=== PATIENT | male | born 1955 | race American Indian/Alaskan Native ===

== ENCOUNTER 2022-05-10 11:05 | Day surgery (SDC) | payer MEDICARE, OTHER ==
[2022-05-10] VITALS (9 sets, daily range): BP systolic 122–146; BP diastolic 65–84
[~2022-05-10] VITALS: Ht 175.3 cm; Wt 99.7 kg
[2022-05-10] MEDS ORDERED: midazolam 1 mg/ML 2ml injection ONE (11:36)
[2022-05-10] MEDS ORDERED: LIDOcaine 1% (10mg/ml) 2ml vial ONE (11:36)
[2022-05-10] MEDS ORDERED: nitroGLYCERIN-Tridil 50MG/D5W 250 ML IV ONE (11:36)
[2022-05-10] MEDS ORDERED: fentaNYL/PF 50MCG/1 ML 2ML syringe ONE (11:36)
[2022-05-10] MEDS ORDERED: verapamil 2.5 mg/ml inj IV ONE (11:36)
[2022-05-10] MEDS ORDERED: iohexol 350MG/ML 100ml bottle IV ONE ×2 (11:37→13:36)
[2022-05-10] MEDS ORDERED: heparin 1,000unit/ml 10ml vial 10 ML ONE (11:37)
[2022-05-10] MEDS ORDERED: FLO0.4C PO (11:46)
[2022-05-10] MEDS ORDERED: LABE100T8 PO ×2 (11:46)
[2022-05-10] MEDS ORDERED: CHLO25TA10 PO (11:46)
[2022-05-10] MEDS ORDERED: ATOR20TA66 PO (11:46)
[2022-05-10] MEDS ORDERED: LISI40TA13 PO (11:46)
[2022-05-10] MEDS ORDERED: FLUT1BLS13 PO (11:46)
[2022-05-10] MEDS ORDERED: LORazepam 0.5 MG tablet PO PRN (11:50)
[2022-05-10] MEDS ORDERED: normal saline 1,000 ML IV SCH (11:50)
[2022-05-10] MEDS ORDERED: diphenhydrAMINE 25mg capsule PO PRN (11:50)
[2022-05-10] MEDS ORDERED: clopidogrel 300mg tablet ONE (13:44)
[2022-05-10] MEDS ORDERED: aspirin 325mg tablet ONE (13:44)
[2022-05-10] MEDS ORDERED: iohexol 350 MG/ML 50ML vial IV ONE (14:01)
[2022-05-10] MEDS ORDERED: HYDROcodone/acetaminophen 10/325mg tab PO PRN (14:50)
[2022-05-10] MEDS ORDERED: HYDROcodone/acetaminophen 5mg/325mg tablet PO PRN (14:50)
== END 2022-05-10 17:45 | disposition home or self-care (01) ==
LOC: SSTAY O 11:05
PROVIDERS: ATTEND Student in an Organized Health Care Education/Training Program
DX: R94.39 Abnormal result of other cardiovascular function study (principal); I25.10 Atherosclerotic heart disease of native coronary artery without angina pectoris; I10 Essential (primary) hypertension; E78.5 Hyperlipidemia, unspecified; G47.33 Obstructive sleep apnea (adult) (pediatric); Z79.82 Long term (current) use of aspirin; Z79.899 Other long term (current) drug therapy; Z98.890 Other specified postprocedural states
CPT/HCPCS: 93005; 93458; C1725; C1769; C1874; C1894; C9600; J1644; J2250; J3010; J3490; J7030; Q0163; Q9967; 99152; 99153; A4620; A5120; A6258; A6402

== ENCOUNTER 2023-07-27 16:07 | Inpatient (IN) | payer MEDICARE, OTHER ==
[~2023-07-27] VITALS: Ht 175.3 cm; Wt 99.1 kg
[~2023-07-27 16:07] MED LIST: ATOR20TA66 PO; CHLO25TA10 PO; FLO0.4C PO; FLUT1BLS13 PO; LABE100T8 PO; LISI40TA13 PO
[2023-07-27] MEDS ORDERED: nitroGLYCERIN 1gm ointment UD TP ONE (16:25)
[2023-07-27] MEDS ORDERED: magnesium hydroxide 30ml (MOM) UD suspension PO PRN (17:10)
[2023-07-27] MEDS ORDERED: mag hydrox/Alum hydrox/simeth 30ml oral suspension PO PRN (17:10)
[2023-07-27] MEDS ORDERED: acetaminophen 325mg tablet PO PRN (17:10)
[2023-07-27] MEDS ORDERED: heparin 25,000 UNIT/250ml bag 250 ML IV PRN (17:10)
[2023-07-27] MEDS ORDERED: potassium Cl 40MEQ/1/2NS 520ml 520 ML IV PRN (17:10)
[2023-07-27] MEDS ORDERED: morphine 2 MG/ML inj. syringe IV PRN ×2 (17:10)
[2023-07-27] MEDS ORDERED: HYDROcodone/acetaminophen 5mg/325mg tablet PO PRN (17:10)
[2023-07-27] MEDS ORDERED: ondansetron/PF 4mg/2ml inj IV PRN (17:10)
[2023-07-27] MEDS ORDERED: docusate sod 100mg capsule PO PRN (17:10)
[2023-07-27] MEDS ORDERED: magnesium Cl slow-release 64mg tablet PO PRN (17:10)
[2023-07-27] MEDS ORDERED: potassium Cl 20 mEq SR tablet PO PRN ×2 (17:10)
[2023-07-27] MEDS ORDERED: PERFLUTREN PROTEIN-A MICROSPHR (Optison) 0.22 MG/ML 3ML VIAL IV ONE (17:10)
[2023-07-27] MEDS ORDERED: magnesium 4gm in 100ml NS 100 ML IV PRN (17:10)
[2023-07-27 17:25] LABS: BASOPHILS % (AUTO) 0.2 % (0-1); EOSINOPHILS % (AUTO) 0 % (0-6); HEMATOCRIT 42.8 % (42.0-52.0); HEMOGLOBIN 14.7 g/dl (14.0-17.9); LYMPHOCYTES # (AUTO) 1.2 X10'3 (1.1-4.8); LYMPHOCYTES % (AUTO) 9.4 % (21-51); MEAN CORPUSCULAR HEMOGLOBIN 30.6 PG (27.0-31.0); MEAN CORPUSCULAR HGB CONC 34.5 g/dL (33.0-36.5); MEAN CORPUSCULAR VOLUME 88.8 FL (78-98); MEAN PLATELET VOLUME 9.4 FL (7.4-10.4); MONOCYTES # (AUTO) 0.5 X10'3 (0-0.9); MONOCYTES % (AUTO) 3.8 % (2-12); NEUTROPHILS % (AUTO) 86.6 % (42-75); PLATELET COUNT 254 X10'3 (140-440); RED BLOOD COUNT 4.82 X10'6 (4.70-6.10); RED CELL DISTRIBUTION WIDTH 13.3 % (11.5-14.5); WHITE BLOOD COUNT 12.7 X10'3 (4.5-11.0)
[2023-07-27 17:39] LABS: APTT 39 SECONDS (22-32); PROTHROMBIN TIME 10.7 SECONDS (9.0-12.0)
[2023-07-27 17:41] LABS: ALANINE AMINOTRANSFERASE 33 U/L (12-78); ALBUMIN 3.2 G/DL (3.4-5.0); ALBUMIN/GLOBULIN RATIO 0.8 (1.1-1.5); ALKALINE PHOSPHATASE 83 IU/L (46-116); ANION GAP 8 (8-16); ASPARTATE AMINO TRANSFERASE 29 U/L (10-37); BILIRUBIN,TOTAL 0.4 MG/DL (0.1-1.0); BLOOD UREA NITROGEN 33 MG/DL (7-18); BUN/CREATININE RATIO 25.4 (10.0-20.0); CALCIUM 8.8 MG/DL (8.5-10.1); CHLORIDE 101 MMOL/L (99-107); GLUCOSE 138 MG/DL (70-104); POTASSIUM 4.1 MMOL/L (3.5-5.1); SODIUM 138 MMOL/L (135-145); TOTAL CARBON DIOXIDE 29.3 MMOL/L (24-32); TOTAL PROTEIN 7.3 G/DL (6.4-8.2); eCRCL 51 ML/MIN; eGFR 55 ML/MIN
[2023-07-27] MEDS ORDERED: albuterol 2.5 MG/3 ML nebule NEB PRN (17:45)
[2023-07-27 17:53] LABS: MAGNESIUM 2.3 MG/DL (1.5-2.4); PRO BRAIN NATRIURETIC PEPTIDE 171 PG/ML (0-125)
[2023-07-27] MEDS: heparin 25,000 UNIT/250ml bag 250 ML IV PRN (18:02)
[2023-07-27 18:10] LABS: HEMOGLOBIN A1C 5.6 % (4.5-6.2)
[2023-07-27] MEDS: normal saline 1000ml 1,000 ML IV SCH (20:29)
[2023-07-27] MEDS: albuterol 2.5 MG/3 ML nebule NEB SCH (20:30)
[2023-07-27] MEDS: budesonide 0.5mg/2ml UD nebule IH SCH (20:30)
[2023-07-27 20:33] VITALS: PULSE 85; RESP 18; O2SAT 94
[2023-07-27 20:41] VITALS: PULSE 75; RESP 16
[2023-07-27 23:47] VITALS: BP 120/68; PULSE 67; RESP 17; TEMP 98.2; O2SAT 96
[2023-07-27 23:53] VITALS: RESP 18; O2SAT 95
[2023-07-28] VITALS (16 sets, daily range): BP systolic 107–164; BP diastolic 61–90; PULSE 67–90; RESP 14–19; TEMP 97.2–97.9; O2SAT 94–97
[2023-07-28] MEDS ORDERED: ASPI-920 PO (00:30)
[2023-07-28] MEDS ORDERED: NITR0.4T51 SL (00:37)
[2023-07-28] MEDS: heparin 10,000 units/1 ML INJ IV PRN ×2 (01:48→17:24)
[2023-07-28] MEDS: albuterol 2.5 MG/3 ML nebule NEB SCH ×3 (02:57→21:40)
[2023-07-28] MEDS: tamsulosin 0.4mg capsule PO SCH ×2 (08:00→13:06)
[2023-07-28] MEDS ORDERED: aspirin 81mg, enteric-coated 1 TAB TABLET.DR PO SCH (08:00)
[2023-07-28] MEDS: atorvastatin 20mg tablet PO SCH ×2 (08:05→13:06)
[2023-07-28] MEDS: budesonide 0.5mg/2ml UD nebule IH SCH ×2 (08:40→21:40)
[2023-07-28] MEDS ORDERED: albuterol 2.5 MG/3 ML nebule NEB SCH (09:27)
[2023-07-28 09:42] LABS: BASOPHILS % (AUTO) 0.2 % (0-1); EOSINOPHILS % (AUTO) 0.1 % (0-6); HEMATOCRIT 41.7 % (42.0-52.0); LYMPHOCYTES # (AUTO) 2.1 X10'3 (1.1-4.8); LYMPHOCYTES % (AUTO) 17.5 % (21-51); MEAN CORPUSCULAR HEMOGLOBIN 30.1 PG (27.0-31.0); MEAN CORPUSCULAR HGB CONC 33.7 g/dL (33.0-36.5); MEAN CORPUSCULAR VOLUME 89.3 FL (78-98); MEAN PLATELET VOLUME 9.4 FL (7.4-10.4); MONOCYTES # (AUTO) 1.1 X10'3 (0-0.9); MONOCYTES % (AUTO) 9.1 % (2-12); NEUTROPHILS # (AUTO) 8.6 X10'3 (1.8-7.7); NEUTROPHILS % (AUTO) 73.1 % (42-75); PLATELET COUNT 244 X10'3 (140-440); RED BLOOD COUNT 4.67 X10'6 (4.70-6.10); WHITE BLOOD COUNT 11.8 X10'3 (4.5-11.0)
[2023-07-28 10:05] LABS: ALANINE AMINOTRANSFERASE 27 U/L (12-78); ALBUMIN 2.9 G/DL (3.4-5.0); ALBUMIN/GLOBULIN RATIO 0.8 (1.1-1.5); ALKALINE PHOSPHATASE 71 IU/L (46-116); ANION GAP 7 (8-16); ASPARTATE AMINO TRANSFERASE 24 U/L (10-37); BILIRUBIN,TOTAL 0.3 MG/DL (0.1-1.0); BLOOD UREA NITROGEN 33 MG/DL (7-18); BUN/CREATININE RATIO 26.6 (10.0-20.0); CALCIUM 8.7 MG/DL (8.5-10.1); CHLORIDE 105 MMOL/L (99-107); CHOL/HDL RATIO 2.8 (0.00-4.99); CHOLESTEROL 113 MG/DL (0-200); CREATININE 1.24 MG/DL (0.60-1.10); GLUCOSE 107 MG/DL (70-104); HDL CHOLESTEROL 41 MG/DL (35-60); LDL CHOLESTEROL 60 MG/DL (50-100); MAGNESIUM 2.3 MG/DL (1.5-2.4); POTASSIUM 3.5 MMOL/L (3.5-5.1); SODIUM 140 MMOL/L (135-145); TOTAL PROTEIN 6.6 G/DL (6.4-8.2); TRIGLYCERIDES 65 MG/DL (20-135); eCRCL 55 ML/MIN; eGFR 58 ML/MIN
[2023-07-28 10:09] LABS: CHOL/HDL RATIO 2.8 (0.00-4.99); CHOLESTEROL 110 MG/DL (0-200); HDL CHOLESTEROL 40 MG/DL (35-60); LDL CHOLESTEROL 57 MG/DL (50-100); TRIGLYCERIDES 65 MG/DL (20-135)
[2023-07-28] MEDS: heparin 25,000 UNIT/250ml bag 250 ML IV PRN ×3 (10:15→17:25)
[2023-07-28] MEDS ORDERED: ipratropium/albuterol 3ml nebule NEB PRN (11:35)
[2023-07-28] MEDS: aspirin 81mg tab.chew PO SCH (13:06)
[2023-07-28] MEDS: normal saline 1000ml 1,000 ML IV SCH (14:05)
[2023-07-28] MEDS ORDERED: LIDOcaine 1% (10mg/ml) 2ml vial ONE (16:14)
[2023-07-28] MEDS ORDERED: heparin 1,000unit/ml 10ml vial 10 ML ONE (16:14)
[2023-07-28] MEDS ORDERED: verapamil 2.5 mg/ml inj IV ONE (16:14)
[2023-07-28] MEDS ORDERED: nitroGLYCERIN 500mcg/5mL D5W 5 ML IV ONE (16:15)
[2023-07-28] MEDS ORDERED: iohexol 350MG/ML 100ml bottle IV ONE ×2 (16:15→18:23)
[2023-07-28] MEDS ORDERED: albuterol 1.25 MG/3 ML (1/2 strength) nebule NEB PRN (17:00)
[2023-07-28] MEDS ORDERED: clopidogrel 75mg tablet PO ONE (17:30)
[2023-07-28] MEDS ORDERED: midazolam 1 mg/ML 2ml injection ONE (17:55)
[2023-07-28] MEDS ORDERED: fentaNYL/PF 50MCG/1 ML 2ML syringe ONE (17:55)
[2023-07-28] MEDS ORDERED: ticagrelor 90mg tablet ONE (18:35)
[2023-07-28] MEDS ORDERED: nitroGLYCERIN 0.4mg SUBLingual tab SL ONE (18:44)
[2023-07-28] MEDS: metoprolol tartrate 12.5mg (1/2 tablet) PO SCH (19:57)
[2023-07-28] MEDS ORDERED: budesonide 0.5mg/2ml UD nebule IH SCH (21:00)
[2023-07-29] VITALS (8 sets, daily range): BP systolic 120–152; BP diastolic 60–88; PULSE 63–90; RESP 14–18; TEMP 97.6–97.7; O2SAT 95–96
[2023-07-29] MEDS: albuterol 2.5 MG/3 ML nebule NEB SCH ×2 (02:45→08:11)
[2023-07-29 06:28] LABS: ALANINE AMINOTRANSFERASE 22 U/L (12-78); ALBUMIN 2.8 G/DL (3.4-5.0); ALBUMIN/GLOBULIN RATIO 0.8 (1.1-1.5); ALKALINE PHOSPHATASE 75 IU/L (46-116); ANION GAP 7 (8-16); ASPARTATE AMINO TRANSFERASE 27 U/L (10-37); BILIRUBIN,TOTAL 0.4 MG/DL (0.1-1.0); BLOOD UREA NITROGEN 31 MG/DL (7-18); BUN/CREATININE RATIO 24.8 (10.0-20.0); CALCIUM 8.4 MG/DL (8.5-10.1); CHLORIDE 104 MMOL/L (99-107); CREATININE 1.25 MG/DL (0.60-1.10); GLUCOSE 98 MG/DL (70-104); MAGNESIUM 2.2 MG/DL (1.5-2.4); PHOSPHORUS 3.8 MG/DL (2.3-4.5); POTASSIUM 3.8 MMOL/L (3.5-5.1); SODIUM 140 MMOL/L (135-145); TOTAL CARBON DIOXIDE 29.5 MMOL/L (24-32); TOTAL PROTEIN 6.3 G/DL (6.4-8.2); eCRCL 55 ML/MIN; eGFR 57 ML/MIN
[2023-07-29 06:32] LABS: BASOPHILS % (AUTO) 0.4 % (0-1); EOSINOPHILS % (AUTO) 0.3 % (0-6); HEMATOCRIT 39.6 % (42.0-52.0); HEMOGLOBIN 13.8 g/dl (14.0-17.9); LYMPHOCYTES # (AUTO) 1.5 X10'3 (1.1-4.8); LYMPHOCYTES % (AUTO) 14.7 % (21-51); MEAN CORPUSCULAR HEMOGLOBIN 30.9 PG (27.0-31.0); MEAN CORPUSCULAR HGB CONC 34.9 g/dL (33.0-36.5); MEAN CORPUSCULAR VOLUME 88.6 FL (78-98); MEAN PLATELET VOLUME 9.3 FL (7.4-10.4); MONOCYTES # (AUTO) 0.9 X10'3 (0-0.9); MONOCYTES % (AUTO) 8.8 % (2-12); NEUTROPHILS # (AUTO) 7.8 X10'3 (1.8-7.7); NEUTROPHILS % (AUTO) 75.8 % (42-75); PLATELET COUNT 231 X10'3 (140-440); RED BLOOD COUNT 4.47 X10'6 (4.70-6.10); RED CELL DISTRIBUTION WIDTH 13.1 % (11.5-14.5); WHITE BLOOD COUNT 10.3 X10'3 (4.5-11.0)
[2023-07-29] MEDS ORDERED: clopidogrel 75mg tablet PO SCH (08:00)
[2023-07-29] MEDS: budesonide 0.5mg/2ml UD nebule IH SCH (08:11)
[2023-07-29] MEDS: aspirin 81mg tab.chew PO SCH (08:17)
[2023-07-29] MEDS: atorvastatin 20mg tablet PO SCH (08:18)
[2023-07-29] MEDS: tamsulosin 0.4mg capsule PO SCH (08:19)
[2023-07-29] MEDS: metoprolol tartrate 12.5mg (1/2 tablet) PO SCH (08:20)
[2023-07-29] MEDS ORDERED: LOP12.5T PO (11:21)
[2023-07-29] MEDS ORDERED: ATOR20TA66 PO (11:21)
[2023-07-29] MEDS ORDERED: ASPI81TA53 PO (11:21)
[2023-07-29] MEDS ORDERED: TICA90TA PO (11:21)
[2023-07-29] MEDS ORDERED: NITR0.4T51 SL (11:21)
== END 2023-07-29 12:14 | disposition home or self-care (01) | DRG 321 ==
LOC: ER 16:08 → ED HOLD 17:18 → PCU 3S 23:42
PROVIDERS: ADMIT Family Medicine; ATTEND Family Medicine
PROC: 027035Z Dilation of Coronary Artery, One Artery with Two Drug-eluting Intraluminal Devices, Percutaneous Approach (ICD-10-PCS; principal; 2023-07-28)
PROC: 4A023N7 Measurement of Cardiac Sampling and Pressure, Left Heart, Percutaneous Approach (ICD-10-PCS; 2023-07-28)
PROC: B2111ZZ Fluoroscopy of Multiple Coronary Arteries using Low Osmolar Contrast (ICD-10-PCS; 2023-07-28)
PROC: B2151ZZ Fluoroscopy of Left Heart using Low Osmolar Contrast (ICD-10-PCS; 2023-07-28)
DX: I21.4 Non-ST elevation (NSTEMI) myocardial infarction (principal); N17.0 Acute kidney failure with tubular necrosis; E78.00 Pure hypercholesterolemia, unspecified; I10 Essential (primary) hypertension; I25.10 Atherosclerotic heart disease of native coronary artery without angina pectoris; J44.9 Chronic obstructive pulmonary disease, unspecified; F17.200 Nicotine dependence, unspecified, uncomplicated; N40.0 Benign prostatic hyperplasia without lower urinary tract symptoms; H61.22 Impacted cerumen, left ear; Z79.899 Other long term (current) drug therapy; Z80.42 Family history of malignant neoplasm of prostate; Z92.3 Personal history of irradiation; Z85.819 Personal history of malignant neoplasm of unspecified site of lip, oral cavity, and pharynx; Z95.5 Presence of coronary angioplasty implant and graft; Z79.82 Long term (current) use of aspirin
CPT/HCPCS: 93306; 93458; 99285; C9600; 36415; 71045; 80053; 80061; 83036; 83735; 83880; 84100; 84484; 85025; 85347; 85610; 85730; 87081; 93005; 94640; 94760; 99152; 99153; A4620; C1725; C1751; C1769; C1874; C1894; G0378; J1644; J2250; J3010; J3490; J7030; Q9967

== ENCOUNTER 2023-08-06 14:12 | Inpatient (IN) | payer MEDICARE, OTHER ==
[~2023-08-06] VITALS: Ht 175.3 cm; Wt 98.0 kg
[~2023-08-06 14:12] MED LIST changes: +ASPI81TA53 PO; -LABE100T8 PO; +LOP12.5T PO; +NITR0.4T51 SL; +TICA90TA PO
[2023-08-06 15:16] LABS: APTT 28 SECONDS (22-32); PROTHROMBIN TIME 10.3 SECONDS (9.0-12.0)
[2023-08-06] MEDS ORDERED: nitroGLYCERIN 0.4mg/hour patch TD ONE (15:20)
[2023-08-06 15:21] LABS: ALANINE AMINOTRANSFERASE 21 U/L (12-78); ALBUMIN 3.1 G/DL (3.4-5.0); ALBUMIN/GLOBULIN RATIO 0.9 (1.1-1.5); ALKALINE PHOSPHATASE 78 IU/L (46-116); ANION GAP 8 (8-16); ASPARTATE AMINO TRANSFERASE 18 U/L (10-37); BILIRUBIN,TOTAL 0.2 MG/DL (0.1-1.0); BLOOD UREA NITROGEN 36 MG/DL (7-18); BUN/CREATININE RATIO 27.7 (10.0-20.0); CHLORIDE 104 MMOL/L (99-107); GLUCOSE 119 MG/DL (70-104); POTASSIUM 4.3 MMOL/L (3.5-5.1); SODIUM 139 MMOL/L (135-145); TOTAL CARBON DIOXIDE 27.5 MMOL/L (24-32); TOTAL PROTEIN 6.4 G/DL (6.4-8.2); eCRCL 53 ML/MIN; eGFR 55 ML/MIN
[2023-08-06 15:26] LABS: BASOPHILS % (AUTO) 0.4 % (0-1); EOSINOPHILS # (AUTO) 0.1 X10'3 (0-0.9); EOSINOPHILS % (AUTO) 0.9 % (0-6); HEMATOCRIT 40.5 % (42.0-52.0); HEMOGLOBIN 13.8 g/dl (14.0-17.9); LYMPHOCYTES # (AUTO) 1.4 X10'3 (1.1-4.8); LYMPHOCYTES % (AUTO) 14.4 % (21-51); MEAN CORPUSCULAR HEMOGLOBIN 30.5 PG (27.0-31.0); MEAN CORPUSCULAR VOLUME 89.7 FL (78-98); MEAN PLATELET VOLUME 9.4 FL (7.4-10.4); MONOCYTES # (AUTO) 0.8 X10'3 (0-0.9); MONOCYTES % (AUTO) 8.5 % (2-12); NEUTROPHILS # (AUTO) 7.6 X10'3 (1.8-7.7); NEUTROPHILS % (AUTO) 75.8 % (42-75); PLATELET COUNT 272 X10'3 (140-440); RED BLOOD COUNT 4.51 X10'6 (4.70-6.10); RED CELL DISTRIBUTION WIDTH 13.4 % (11.5-14.5)
[2023-08-06 15:27] LABS: CALCIUM 8.2 MG/DL (8.5-10.1); MAGNESIUM 2.3 MG/DL (1.5-2.4); PRO BRAIN NATRIURETIC PEPTIDE 153 PG/ML (0-125)
[2023-08-06] MEDS ORDERED: ondansetron/PF 4mg/2ml inj IV PRN (16:20)
[2023-08-06] MEDS ORDERED: mag hydrox/Alum hydrox/simeth 30ml oral suspension PO PRN (16:20)
[2023-08-06] MEDS ORDERED: morphine 2 MG/ML inj. syringe IV PRN ×2 (16:20)
[2023-08-06] MEDS ORDERED: bisacodyl 10mg suppository rectal RC PRN (16:20)
[2023-08-06] MEDS ORDERED: ondansetron 4mg rapidly disintigrating tab PO PRN (16:20)
[2023-08-06] MEDS ORDERED: nitroGLYCERIN 0.4mg SUBLingual tab SL PRN (16:20)
[2023-08-06] MEDS ORDERED: acetaminophen 325mg tablet PO PRN ×2 (16:20)
[2023-08-06] MEDS ORDERED: potassium Cl 20 mEq SR tablet PO PRN ×2 (16:20)
[2023-08-06] MEDS ORDERED: acetaminophen 650mg rectal suppository RC PRN (16:20)
[2023-08-06] MEDS ORDERED: magnesium 4gm in 100ml NS 100 ML IV PRN (16:20)
[2023-08-06] MEDS ORDERED: magnesium 2GM in 50ml NS 50 ML IV PRN (16:20)
[2023-08-06] MEDS ORDERED: magnesium hydroxide 30ml (MOM) UD suspension PO PRN (16:20)
[2023-08-06] MEDS ORDERED: magnesium Cl slow-release 64mg tablet PO PRN (16:20)
[2023-08-06] MEDS ORDERED: potassium Cl 40MEQ/1/2NS 520ml 520 ML IV PRN (16:20)
[2023-08-06] MEDS: normal saline 1000ml 1,000 ML IV SCH ×2 (16:59→17:08)
[2023-08-06 18:15] LABS: BILIRUBIN,URINE NEGATIVE (Neg); CLARITY,URINE SLIGHTLY CLOUDY (Clear); COLOR,URINE YELLOW (Yellow); GLUCOSE, URINE NEGATIVE (Neg); KETONES,URINE NEGATIVE (Neg); LEUKOCYTE ESTERASE ,URINE NEGATIVE (Neg); NITRITES, URINE NEGATIVE (Neg); OCCULT BLOOD,URINE NEGATIVE (Neg); PROTEIN,URINE NEGATIVE (Neg); UROBILINOGEN,URINE 0.2 E.U/dL (0.2-1.0)
[2023-08-06 18:47] LABS: UA COLLECTION TYPE VOIDED
[2023-08-06 18:48] LABS: MUCUS STRANDS FEW /LPF (Neg); SQUAMOUS EPITHELIAL CELL,UR FEW /LPF (FEW)
[2023-08-06 18:49] LABS: BACTERIA,URINE 2+ /HPF (Neg); RBC,URINE NONE SEEN /HPF (0-2); WBC,URINE 0-4 /HPF (0-4)
[2023-08-06] MEDS: K and/or MAG REPLACEMENT MC SCH (19:59)
[2023-08-06] MEDS: docusate sod 100mg capsule PO SCH (21:26)
[2023-08-06] MEDS: heparin, porcine 5000 units/ml vial SQ SCH (21:28)
[2023-08-06 22:00] VITALS: BP 114/66; PULSE 56; RESP 20; TEMP 98.3; O2SAT 95
[2023-08-07 02:30] VITALS: BP 104/53; PULSE 62; RESP 15; TEMP 97.5; O2SAT 94
[2023-08-07 06:00] VITALS: BP 130/77; PULSE 64; RESP 21; TEMP 98.5; O2SAT 97
[2023-08-07 07:10] LABS: HEMATOCRIT 42.5 % (42.0-52.0); HEMOGLOBIN 14.6 g/dl (14.0-17.9); MEAN CORPUSCULAR HEMOGLOBIN 30.7 PG (27.0-31.0); MEAN CORPUSCULAR HGB CONC 34.2 g/dL (33.0-36.5); MEAN CORPUSCULAR VOLUME 89.7 FL (78-98); MEAN PLATELET VOLUME 9.3 FL (7.4-10.4); PLATELET COUNT 235 X10'3 (140-440); RED BLOOD COUNT 4.74 X10'6 (4.70-6.10); RED CELL DISTRIBUTION WIDTH 13.4 % (11.5-14.5); WHITE BLOOD COUNT 10.6 X10'3 (4.5-11.0)
[2023-08-07] MEDS: K and/or MAG REPLACEMENT MC SCH (08:00)
[2023-08-07] MEDS ORDERED: nitroGLYCERIN 0.4mg/hour patch TD SCH (08:00)
[2023-08-07] MEDS: docusate sod 100mg capsule PO SCH (08:00)
[2023-08-07 08:13] LABS: ALBUMIN 3.1 G/DL (3.4-5.0); ANION GAP 8 (8-16); BLOOD UREA NITROGEN 27 MG/DL (7-18); BUN/CREATININE RATIO 22.9 (10.0-20.0); CALCIUM 8.3 MG/DL (8.5-10.1); CHLORIDE 105 MMOL/L (99-107); CREATININE 1.18 MG/DL (0.60-1.10); GLUCOSE 97 MG/DL (70-104); MAGNESIUM 2.2 MG/DL (1.5-2.4); POTASSIUM 4.3 MMOL/L (3.5-5.1); SODIUM 139 MMOL/L (135-145); TOTAL CARBON DIOXIDE 25.6 MMOL/L (24-32); eCRCL 58 ML/MIN; eGFR 61 ML/MIN
[2023-08-07] MEDS: heparin, porcine 5000 units/ml vial SQ SCH (10:19)
[2023-08-07 11:00] VITALS: BP 141/76; PULSE 63; RESP 20; TEMP 97.7; O2SAT 98
== END 2023-08-07 16:50 | disposition home or self-care (01) | DRG 303 ==
LOC: ER 14:12 → ED HOLD 16:23 → EDBEDREQ 21:34 → PCU 3S 22:36
PROVIDERS: ADMIT Family Medicine; ATTEND Family Medicine
DX: I25.110 Atherosclerotic heart disease of native coronary artery with unstable angina pectoris (principal); I48.91 Unspecified atrial fibrillation; I10 Essential (primary) hypertension; E78.00 Pure hypercholesterolemia, unspecified; N40.0 Benign prostatic hyperplasia without lower urinary tract symptoms; J43.9 Emphysema, unspecified; I25.2 Old myocardial infarction; Z79.899 Other long term (current) drug therapy; Z85.819 Personal history of malignant neoplasm of unspecified site of lip, oral cavity, and pharynx; Z80.42 Family history of malignant neoplasm of prostate; Z92.3 Personal history of irradiation; Z95.5 Presence of coronary angioplasty implant and graft; Z79.82 Long term (current) use of aspirin
CPT/HCPCS: 36415; 71045; 80048; 80053; 81001; 83735; 83880; 84484; 85025; 85027; 85610; 85730; 87081; 93005; 93308; 99285; G0378; J1644; J7030